=== PATIENT | male | born 1985 | race Caucasian/White ===

== ENCOUNTER 2021-06-10 01:18 | Emergency (ER) | payer OTHER ==
[~2021-06-10] VITALS: Ht 185.4 cm; Wt 176.9 kg
[2021-06-10 01:22] VITALS: BP 152/86
--- NOTE | 2021-06-10 01:25 | NUR ---
PT SENT TO ER LOBBY TO WAIT FOR AVAILABLE BED.
--- NOTE | 2021-06-10 02:30 | NUR ---
SEEN AND EXAMINED BY [facility]
[2021-06-10] MEDS ORDERED: diazePAM 5 MG TAB PO ONE (02:45)
[2021-06-10] MEDS ORDERED: ACETAMINOPHEN EXTRA STRENGTH 500 MG TAB PO ONE (02:45)
--- NOTE | 2021-06-10 02:45 | NUR ---
MEDICATED PER [facility] ORDER, TOLERATED WELL
[2021-06-10 03:18] LABS: BASOPHILS % (AUTO) 0.4 % (0.0-2.0); EOSINOPHILS % (AUTO) 0.5 % (0.0-4.0); HEMATOCRIT 41.9 % (36-52); HEMOGLOBIN 14.3 g/dL (12.0-18.0); LYMPHOCYTES # (AUTO) 1.1 K/uL (2.0-11.5); LYMPHOCYTES % (AUTO) 12.8 % (20.5-51.1); MEAN CORPUSCULAR HEMOGLOBIN 32 pg (27-31); MEAN CORPUSCULAR HGB CONC 34 g/dL (33-37); MEAN CORPUSCULAR VOLUME 93.7 fL (80-94); MONOCYTES # (AUTO) 0.6 K/uL (0.8-1.0); MONOCYTES % (AUTO) 6.5 % (1.7-9.3); NEUTROPHILS # (AUTO) 7.1 K/uL (1.8-7.7); NEUTROPHILS % (AUTO) 79.8 % (42.2-75.2); PLATELET COUNT (AUTO) 249 K/uL (140-450); RED BLOOD CELL COUNT(AUTO) 4.47 MIL/uL (4.20-6.10); RED CELL DISTRIBUTION WIDTH 13.6 % (11.6-13.7); WHITE BLOOD COUNT (AUTO) 8.9 K/uL (4.8-10.8)
[2021-06-10 03:25] LABS: ALBUMIN 3.7 g/dL (3.4-5.0); CARBON DIOXIDE 21.8 mmol/L (21-32); CREATININE 0.9 mg/dL (0.6-1.3); POTASSIUM 3.8 mmol/L (3.5-5.1); TOTAL BILIRUBIN 0.3 mg/dL (0.0-1.0)
--- NOTE | 2021-06-10 03:31 | NUR ---
PT AMBULATED TO BED 7.
[2021-06-10 03:45] VITALS: BP 119/59
--- NOTE | 2021-06-10 03:45 | NUR ---
See complete assessment. Patient attached to cardiac monitoring system. no c/o pain at this time. will continue to monitor.
--- NOTE | 2021-06-10 03:45 | NUR ---
PT REPORTS MODERATE RELIEF OF CHEST PAIN, 3/10.
--- NOTE | 2021-06-10 04:35 | NUR ---
Patient discharged with v/s stable. Written and verbal after care instructions given and explained. Patient verbalized understanding. Ambulatory with steady gait. All questions addressed prior to discharge. Advised to follow up with PMD.
== END 2021-06-10 04:35 | disposition home or self-care (01) ==
LOC: MED 01:18
DX: F41.9 Anxiety disorder, unspecified (principal); F12.10 Cannabis abuse, uncomplicated; I10 Essential (primary) hypertension
CPT/HCPCS: 36415; 71045; 80053; 84484; 85025; 93005; 99285